=== PATIENT | female | born 1985 | race Hispanic/Latino ===

== ENCOUNTER 2019-07-31 10:35 | Outpatient (CLI) | payer OTHER ==
--- NOTE | 2019-07-31 12:17 | ULT ---
PELVIC ULTRASOUND: TECHNIQUE: Transabdominal ultrasound of the pelvis performed. INDICATIONS: Pelvic pain. FINDINGS: Uterus is mildly prominent in size with measurements recorded at 9.3 x 7.6 x 5.1 cm. The endometrial stripe is echogenic and thickened, measuring up to 2.5 cm. Both ovaries are identified and appear unremarkable. Color Doppler with spectral analysis demonstrat es blood flow to both ovaries. No free fluid identified. IMPRESSION: 1. Mildly prominent uterus. 2. Prominent echogenic endometrial stripe. The technologist states the patient is currently on menses which may contribute to this endometrial echogenicity. Consider followup after menses to reassess en dometrium. POS: OFF
== END 2019-07-31 10:36 | disposition home or self-care (01) ==
LOC: BICULT 10:35
DX: R10.2 Pelvic and perineal pain (principal); N85.8 Other specified noninflammatory disorders of uterus
CPT/HCPCS: 76856

== ENCOUNTER 2021-01-20 12:58 | Outpatient (CLI) | payer OTHER | END 2021-01-20 12:59 | disposition home or self-care (01) | LOC: BICULT 12:58 | PROVIDERS: ATTEND Physician Assistant | DX: R93.89 Abnormal findings on diagnostic imaging of other specified body structures (principal) | CPT/HCPCS: 76856; 93976 ==